=== PATIENT | female | born 1965 | race African-American/Black ===

== ENCOUNTER 2017-02-27 16:30 | Outpatient (RCR) | payer OTHER, SELFPAY | END 2017-02-27 23:59 | LOC: PT 16:30 | PROVIDERS: Visit Provider Nurse Practitioner Family | DX: M25.551 Pain in right hip (principal); M25.552 Pain in left hip | CPT/HCPCS: 97010; 97014; 97110; G0283 ==

== ENCOUNTER 2017-02-27 16:30 | Outpatient (RCR) | payer OTHER, SELFPAY | END 2017-02-27 23:59 | LOC: PT 16:30 | PROVIDERS: Visit Provider Nurse Practitioner Family | DX: M62.9 Disorder of muscle, unspecified (principal) | CPT/HCPCS: 97010; 97014; 97016; 97110; 97140; 97162; 97164; G0283 ==

== ENCOUNTER → 2018-07-26 17:18 | Outpatient (CLI) | payer BC, SELFPAY ==
[2018-07-26 18:25] LABS: Alanine Aminotransferase 20 U/L (12-78); Albumin Level 3.6 gm/dL (3.4-5.0); Albumin/Globulin Ratio 1.4 (1.1-1.8); Alkaline Phosphatase 107 U/L (46-116); Anion Gap 13.6 mEq/L (5-15); Aspartate Amino Transferase 14 U/L (15-37); Bilirubin,Total 0.3 mg/dL (0.2-1.0); Blood Urea Nitrogen 15 mg/dL (7-18); Calcium 8.8 mg/dL (8.5-10.1); Carbon Dioxide 28 mmol/L (21.0-32.0); Chloride 108 mmol/L (98-107); Creatinine,Serum 0.59 mg/dL (0.55-1.02); Estimated Glomerular Filt Rate 107 ml/min (>60); GFR (African American) 130 ML/MIN (>60); Globulin 2.5 gm/dl (1.3-3.2); Glucose 88 mg/dL (74-106); Potassium 4.6 mmoL/L (3.5-5.1); Sodium 145 mmol/L (136-145); Total Protein,Serum 6.1 gm/dL (6.4-8.2)
[2018-07-26 18:38] LABS: Basophils % 0.9 % (0.1-2.0); Eosinophils # 0.2 K/mm3 (0.0-0.4); Eosinophils % 5.5 % (0.1-12.0); Hematocrit 37.1 % (37.0-47.0); Hemoglobin 12.3 g/dL (12.2-16.2); Lymphocytes # 0.8 K/mm3 (0.7-4.5); Lymphocytes % 22.8 % (10-50); Mean Corpuscular HGB Conc 33.3 g/dL (31.8-35.4); Mean Corpuscular Hemoglobin 27.2 pg (27.0-31.2); Mean Corpuscular Volume 81.9 fl (81-99); Mean Platelet Volume 7.3 fl (7.4-10.4); Monocytes # 0.3 K/mm3 (0.1-1.0); Monocytes % 8.3 % (1.7-9.3); Neutrophils # 2.3 K/mm3 (1.8-7.8); Neutrophils % 62.5 % (37.0-80.0); Platelet Count 328 K/mm3 (142-424); Red Blood Count 4.53 M/mm3 (4.20-5.40); Red Cell Distribution Width 14.5 % (11.5-17.5); White Blood Count 3.7 K/mm3 (4.8-10.8)
== END ==
PROVIDERS: Visit Provider Internal Medicine
DX: Z51.81 Encounter for therapeutic drug level monitoring (principal)
CPT/HCPCS: 36415; 80053; 85025

== ENCOUNTER → 2018-09-06 08:20 | Outpatient (CLI) | payer BC, SELFPAY ==
--- NOTE | 2018-09-06 08:35 | US_ITS ---
US transvaginal HISTORY: ITS.REASON: ABD BLOATING ORDERING PHYSICIAN: Iram Mckinney APRN PATIENT AGE: 53 years Comparison: None FINDINGS: UTERUS: The uterus measures 6 x 3 x 3 cm. There is an IUD in place years the endometrium. No obvious uterine mass. The right ovary is 2 x 1.8 cm has an unremarkable appearance. The left ovary is 2.5 x 1.3 cm with a central echogenic focus nonspecific. No cul-de-sac fluid evident. IMPRESSION: Intrauterine device present in expected location Nonspecific small hyperechoic focus of the left ovary otherwise negative pelvic ultrasound.
--- NOTE | 2018-09-06 08:35 | US_ITS ---
US abdomen complete HISTORY: Midline abdominal pain with nausea and weight loss ITS.REASON: ABD BLOATING ORDERING PHYSICIAN: Iram Mckinney APRN PATIENT AGE: 53 years COMPARISON: None FINDINGS: PANCREAS:Unremarkable. No obvious mass or abnormal fluid collection. No ductal dilatation LIVER:There are multiple hepatic cysts the largest measuring 4.3 cm in the mid aspect of the liver. There is appropriate direction of blood flow within a nondilated portal vein. Common bile duct is normal at 4 mm. RIGHT KIDNEY:Unremarkable. Normal size and echogenicity. No hydronephrosis LEFT KIDNEY:Unremarkable. No hydronephrosis. Normal size and echogenicity. GALLBLADDER:The gallbladder is somewhat contracted. No stones, wall thickening, pericholecystic fluid, or biliary dilatation is evident. AORTA:No evidence of aneurysmal dilatation. SPLEEN:Unremarkable. Normal size and echogenicity ASCITES:None demonstrated. IMPRESSION: Multiple hepatic cysts otherwise negative abdominal ultrasound
== END ==
PROVIDERS: PCP Family Medicine; Visit Provider Nurse Practitioner Family
DX: R14.0 Abdominal distension (gaseous) (principal)
CPT/HCPCS: 76700; 76830

== ENCOUNTER 2020-03-05 10:30 | Emergency (ER) | payer BC, SELFPAY ==
[2020-03-05 10:45] VITALS: BP 104/76; PULSE 86; RESP 19; TEMP 36.6; O2SAT 99; BMI 24.2
--- NOTE | 2020-03-05 10:54 | HMH.EDUTC ---
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 Take tylenol for pain or fever. Return if you begin to have difficulty breathing. Follow up with your regular doctor. GO TO THE ER FOR ANY WORSENING SYMPTOMS Prescriptions: Azithromycin [Z-Milan 250mg Tab*] 250 mg PO UD DOSE PK #6 tab Transmission Status: Received by [facility] Referrals: Honey Stewart MD [Primary Care Provider] - Forms: Work/School Release Time of Disposition: 11:13 Medical Decision Making - Medical Records Medical records reviewed: No: I reviewed the patient's medical records. - Yadiel Inquiry Pt receiving controlled substance: No Vital Signs: 03/05/20 10:45 03/05/20 11:11 Temperature 97.8 F 97.8 F Temperature Source Oral Pulse Rate 86 Pulse Rate [Right Brachial] 86 Respiratory Rate 19 19 Blood Pressure 104/76 L Blood Pressure [Right Arm] 104/76 L Blood Pressure Mean [Right Arm] 85 Blood Pressure Source [Right Arm] Automatic Cuff Blood Pressure Position [Right Arm] Sitting 02 Sat by Pulse Oximetry 99 Oxygen Delivery Method Room Air Orders (Tests/Meds): ORDERS Category Date Time Status Covid-19 Nasal PCR ([facility]) Routine Lab 03/05/20 10:50 Received [facility] [place] HPI - General Stated complaint: covid exposure Time Seen by Provider: 03/05/20 10:54 - History of Present Illness Provider Complaint: She states that she has been exposed to covid at her work. This happened around 4 days ago. She is having sinus congestion. 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 She denies any fever, chills, shortness of breath, body aches, etc. - Related Data Home Medications Medication Instructions Recorded Confirmed Folic Acid [Folic Acid 1mg tablet] 1 mg PO DAILY 11/15/17 10/14/18 Gabapentin [Gabapentin 300mg Cap] 300 mg PO TID 11/15/17 10/14/18 Ibuprofen [Motrin 800mg Tab 800 mg PO BID 11/15/17 10/14/18 (generic)] Sulfamethoxazole/Trimethoprim 400 mg PO TIDWM 11/15/17 10/14/18 [Bactrim 400-80 mg (SS) Tablet] metHOTREXate sodium [metHOTREXate 20 mg PO WEEKLY 11/15/17 10/14/18 2.5mg Tablet] levonorgestrel 20 mcg/24 hours (6 INTRAUTERI each 10/14/18 10/14/18 yrs) 52 mg intrauterine device Previous Rx's Medication Instructions Recorded Azithromycin [Z-Milan 250mg Tab*] 250 mg PO UD DOSE PK #6 tab 03/05/20 Allergies Allergy/AdvReac Type Severity Reaction Status Date / Time No Known Allergies Allergy Verified 10/14/18 15:19 [facility] History - Hepatitis A Screen Attestation statement:: This patient has been screened for Hepatitis A risk factors. I have reviewed the patient's past medical history: Yes Medical History: Denies:: Cancer, Diabetes Mellitus Type 1, Diabetes Mellitus Type 2, Lung Disease, MRSA, Seizures Laterality Cases: Bilateral: Total Hip Replacement Other Surgeries: Yes: Sinus Surgery Amputation: No Fractures: No - Social History Smoking Status: Never smoker Alcohol Intake: never Substance Use Type: denies use Occupational Status: employed Family Hx:: No significant family history ROS Obtained: Yes All systems reviewed & no additional complaints - Constitutional Constitutional: Reports system reviewed and no additional complaints, excep
[2020-03-05 11:11] VITALS: BP 104/76; PULSE 86; RESP 19; TEMP 36.6; O2SAT 99
--- NOTE | 2020-03-05 15:40 | PC.NURSE ---
PT NOTIFIED OF POSITIVE COVID RESULT
== END 2020-03-05 11:19 | disposition home health service (06) ==
PROVIDERS: Emergency Provider Nurse Practitioner Family; PCP Family Medicine
DX: U07.1 COVID-19 (principal); J01.90 Acute sinusitis, unspecified; M31.30 Wegener's granulomatosis without renal involvement; Z96.641 Presence of right artificial hip joint; Z96.642 Presence of left artificial hip joint; Z79.899 Other long term (current) drug therapy
CPT/HCPCS: 99202; G0463; U0003

== ENCOUNTER 2020-10-15 17:22 | Emergency (ER) | payer BC, SELFPAY ==
[2020-10-15 17:35] VITALS: BP 130/72; PULSE 82; RESP 18; TEMP 36.8; O2SAT 98; BMI 22.3
--- NOTE | 2020-10-15 18:15 | HMH.EDUTC ---
[facility] [place] Disposition Clinical Impression: Sinusitis Qualifiers: Sinusitis location: unspecified location Chronicity: unspecified Qualified Code(s): J32.9 - Chronic sinusitis, unspecified Disposition: Home, Self-Care Condition on Discharge: Good Instructions: Sinusitis, DI for Sinusitis, Methylprednisolone, Azithromycin Additional Instructions: *Monitor Temp, Over the counter Motrin or Tylenol as directed/as needed Tylenol every 4 hours and Motrin every 6 hours (as long as your family doctor has told you that you can take it) for fever or pain. and straight to ER if unable to lower temp less than 101.0 after medication given *Warm salt water gargles may help to soothe the throat *Throat Lozenges *Warm fluids like tea with honey may help to soothe the throat *Sleep elevated *Humidifier/Vaporizer Take medication as prescribed Return if needed Follow up IMMEDIATELY for new or worsening symptoms or no Noticeable improvement over the next 48-72 hours. 911 for difficulty breathing or swallowing Prescriptions: methylPREDNISolone [Medrol 4mg tab] 4 mg PO DIRECTED #21 tab Transmission Status: Pending to [facility] Azithromycin [Z-Milan 250mg Tab] 250 mg PO DIRECTED #6 tab Transmission Status: Pending to [facility] Referrals: Honey Stewart MD [Primary Care Provider] - As needed Time of Disposition: 18:17 Medical Decision Making - Yadiel Inquiry Pt receiving controlled substance: No Yadiel was queried for this patient: No Vital Signs: 10/15/20 17:35 10/15/20 18:16 Temperature 98.2 F 98.2 F Temperature Source Oral Pulse Rate 82 Pulse Rate [Right Brachial] 82 Respiratory Rate 18 18 Blood Pressure 130/72 Blood Pressure [Right Arm] 130/72 Blood Pressure Mean [Right Arm] 91 Blood Pressure Source [Right Arm] Automatic Cuff Blood Pressure Position [Right Arm] Sitting 02 Sat by Pulse Oximetry 98 Oxygen Delivery Method Room Air Medical Decision Narrative: Patient state that she has taken a zpack and medrol in the past without complications or reactions [facility] [place] HPI - General Stated complaint: sinus infection Time Seen by Provider: 10/15/20 18:15 Mode of Arrival: Ambulatory Source of Information: Patient Limitations: No Limitations Description of Symptoms (Recalled from Triage Doc. by RN): PATIENT C/O POSSIBLE SINUS INFECTION HEENT Symptoms (Recalled from RN notes): Yes Resp Symptoms (Recalled from RN notes): No Skin Symptoms (Recalled from RN notes): No MS Symptoms (Recalled from RN notes): No Functional Status (Recalled from RN notes): WNL - History of Present Illness Provider Complaint: Patient states that she has been having sinus congestion and pressure for over a week States that now drainage went from clear to yellowish green State that she feels like it did when she had a sinus infection before - Related Data Home Medications Medication Instructions Recorded Confirmed Folic Acid [Folic Acid 1mg tablet] 1 mg PO DAILY 11/15/17 10/14/18 Gabapentin [Gabapentin 300mg Cap] 300 mg PO TID 11/15/17 10/14/18 Ibuprofen [Motrin 800mg Tab 800 mg PO BID 11/15/17 10/14/18 (generic)] Sulfamethoxazole/Trimethoprim 400 mg PO TIDWM 11/15/17 10/14/18 [Bactrim 400-80 mg (SS) Tablet] metHOTREXate sodium [metHOTREXate 20 mg PO WEEKLY 11/15/17 10/14/18 2.5mg Tablet] levonorgestrel 20 mcg/24 hours (6 INTRAUTERI each 10/14/18 10/14/18 yrs) 52 mg intrauterine device Previous Rx's Medication Instructions Recorded Azithromycin [Z-Milan 250mg Tab*] 250 mg PO UD DOSE PK #6 tab 03/05/20 Azithromycin [Z-Milan 250mg Tab] 250 mg PO DIRECTED #6 tab 10/15/20 methylPREDNISolone [Medrol 4mg 4 mg PO DIRECTED #21 tab 10/15/20 tab] Allergies Allergy/AdvReac Type Severity Reaction Status Date / Time No Known Allergies Allergy Verified 10/14/18 15:19 - Worker's Comp Is this a Worker's Comp case?: No [facility] History - Hepatitis A Screen Drug use his
[2020-10-15 18:16] VITALS: BP 130/72; PULSE 82; RESP 18; TEMP 36.8; O2SAT 98
== END 2020-10-15 18:19 | disposition home or self-care (01) ==
PROVIDERS: Emergency Provider Nurse Practitioner; PCP Family Medicine
DX: J32.9 Chronic sinusitis, unspecified (principal)
CPT/HCPCS: 99202; G0463

== ENCOUNTER → 2021-03-01 12:06 | Outpatient (CLI) | payer BC, SELFPAY | PROVIDERS: Visit Provider Nurse Practitioner | DX: U07.1 COVID-19 (principal) | CPT/HCPCS: C9803; U0003; U0005 ==

== ENCOUNTER 2021-03-01 12:12 | Emergency (ER) | payer BC, SELFPAY ==
[2021-03-01 13:45] VITALS: BP 102/73; PULSE 106; RESP 20; TEMP 37.2; O2SAT 97; BMI 22.1
[2021-03-01 14:02] LABS: UTC Strep Screen (Rapid) Positive (Negative)
--- NOTE | 2021-03-01 14:13 | HMH.EDUTC ---
[facility] [place] Disposition Clinical Impression: Strep throat Disposition: Home, Self-Care Condition on Discharge: Good Instructions: Strep Throat, DI for Strep Throat Additional Instructions: *Monitor Temp, Over the counter Motrin or Tylenol as directed/as needed Tylenol every 4 hours and Motrin every 6 hours (as long as your family doctor has told you that you can take it) for fever or pain. and straight to ER if unable to lower temp less than 101.0 after medication given *Warm salt water gargles may help to soothe the throat *Throat Lozenges *Warm fluids like tea with honey may help to soothe the throat *Sleep elevated *Humidifier/Vaporizer *If you did not take Penicillin shot or was unable to, start taking antibiotic immediately and make sure that you take it for the FULL length of time although you should start to feel better in 24-48 hours *change toothbrush and toothpaste 24-48 hours after starting to take antibiotics so you do not reinfect yourself Monitor Temp. Tylenol and/or Ibuprofen as needed. ER if fever is no less than 101 despite alternating Tylenol and Ibuprofen * Encourage fluids, water, Gatorade, powerade, pedialyte if infant/toddler/or child *Cold fluids, popsicles and ice cream may feel good on his throat Follow up IMMEDIATELY for new or worsening symptoms or no Noticeable improvement over the next 48-72 hours. 911 for difficulty breathing or swallowing You were tested for today for COVID19 your test result should be back in the next 24-48 hours, you may check your results on the [facility] My Health portal if you have trouble logging on you may call You was given a handout with instructions for Self Quarantine and Self isolation for while you wait on test results and what to do if they are positive If you are positive the Health Dept will be contacting you also Make sure to take your Vitamins Vit. C Vit D and Zinc if you can take them Prescriptions: Amoxicillin [Amoxicillin 500mg Cap] 500 mg PO TID #30 cap Transmission Status: Pending to [facility] methylPREDNISolone [Medrol 4mg tab] 4 mg PO DIRECTED #21 tab Transmission Status: Pending to [facility] Referrals: Honey Stewart MD [Primary Care Provider] - As needed Forms: Work/School Release Time of Disposition: 14:24 Medical Decision Making - Yadiel Inquiry Pt receiving controlled substance: No Yadiel was queried for this patient: No Vital Signs: 03/01/21 13:45 03/01/21 14:23 Temperature 98.9 F 98.9 F Temperature Source Oral Pulse Rate 106 H Pulse Rate [Right Brachial] 106 H Respiratory Rate 20 20 Blood Pressure 102/73 L Blood Pressure [Right Arm] 102/73 L Blood Pressure Mean [Right Arm] 82 Blood Pressure Source [Right Arm] Automatic Cuff Blood Pressure Position [Right Arm] Sitting 02 Sat by Pulse Oximetry 97 Oxygen Delivery Method Room Air - Lab Data Lab results reviewed: Yes: I reviewed the patient's lab results. Lab Results 03/01/21 13:54: Strep Scn Rapid Clinic Positive A [facility] [place] HPI - General Stated complaint: possible strep, pos OTC covid 02/28 Time Seen by Provider: 03/01/21 14:14 Mode of Arrival: Ambulatory Source of Information: Patient Limitations: No Limitations Description of Symptoms (Recalled from Triage Doc. by RN): PATIENT C/O SORE THROAT. HAD COVID TEST TODAY HEENT Symptoms (Recalled from RN notes): Yes Resp Symptoms (Recalled from RN notes): No Skin Symptoms (Recalled from RN notes): No MS Symptoms (Recalled from RN notes): No Functional Status (Recalled from RN notes): WNL - History of Present Illness Provider Complaint: Patient states that she has been having sore throat, headache, body aches, chills and fever State that she took OTC COVID test yesterday and it was positive State that today she came in got a PCR test here to see if it was positive but was worried that she may have strep throat so she came in to get checked for that too - Related Data Home Medication
[2021-03-01 14:23] VITALS: BP 102/73; PULSE 106; RESP 20; TEMP 37.2; O2SAT 97
== END 2021-03-01 14:26 | disposition home or self-care (01) ==
PROVIDERS: Emergency Provider Nurse Practitioner; PCP Family Medicine
DX: J02.0 Streptococcal pharyngitis (principal)
CPT/HCPCS: 87880; 99202; G0463

== ENCOUNTER → 2022-01-05 08:08 | Outpatient (CLI) | payer BC, SELFPAY ==
--- NOTE | 2022-01-05 08:08 | MM_ITS ---
PROCEDURE INFORMATION: Exam: MG Bilateral Screening 3D Mammography Exam date and time: 01/05/2022 8:00 AM Age: 56 years old Clinical indication: Screening. No family history of breast cancer. TECHNIQUE: Imaging protocol: Bilateral Screening tomosynthesis and 2D mammography including computer-aided detection (CAD) when performed. COMPARISON: Note comment regarding comparison 1. [facility] DIGITAL SCREEN BILATERAL 11/17/2020 2:32 PM - corrupted images 2. [facility] DIGITAL SCREEN BILATERAL 07/31/2018 1:37 PM 3. If prior mammograms are provided, I am happy to add an addendum. FINDINGS: MAMMOGRAPHY: Breast composition: The breasts are almost entirely fatty. Mass: None. Architectural distortion: None. Calcifications: No suspicious calcifications. Asymmetric density: None. Skin thickening: None. Axillary adenopathy: None. IMPRESSION: No mammographic evidence of malignancy. Annual screening is recommended unless otherwise clinically indicated. ASSESSMENT: BI-RADS Category 1: Negative
== END ==
PROVIDERS: PCP Family Medicine; Visit Provider Nurse Practitioner Obstetrics & Gynecology
DX: Z12.31 Encounter for screening mammogram for malignant neoplasm of breast (principal)
CPT/HCPCS: 77063; 77067

== ENCOUNTER 2022-02-13 17:43 | Emergency (ER) | payer BC, SELFPAY ==
[2022-02-13 20:05] VITALS: BP 120/87; PULSE 98; RESP 18; TEMP 36.9; O2SAT 98; BMI 21.7
--- NOTE | 2022-02-13 20:24 | EXP.UTC ---
Discharge Plan Disposition Patient Disposition: Home, Self-Care Condition: Good Prescriptions Prescriptions: No Action methotrexate sodium 2.5 mg tablet 2.5 mg PO ibuprofen 800 mg tablet 800 mg PO duloxetine 60 mg capsule,delayed release(DR/EC) 60 mg PO folic acid 1 mg tablet 1 mg PO Mirena 20 mcg/24 hours (7 yrs) 52 mg intrauterine device INTRAUTERI sulfamethoxazole-trimethoprim 1 EACH tablet 1 tab PO BID pantoprazole 40 MG tablet,delayed release (DR/EC) 40 mg PO HS gabapentin 300 MG capsule 300 mg PO QID Referrals Follow up/Referrals: Honey Stewart MD [Primary Care Provider] - See instructions Activity Restrictions/Add. Instructions Additional Instructions/Restrictions: *Monitor Temp, Over the counter Motrin or Tylenol as directed/as needed Tylenol every 4 hours and Motrin every 6 hours (as long as your family doctor has told you that you can take it) for fever or pain. and straight to ER if unable to lower temp less than 101.0 after medication given *Warm salt water gargles may help to soothe the throat *Throat Lozenges? *Warm fluids like tea with honey may help to soothe the throat? *Sleep elevated *Humidifier/Vaporizer Follow up IMMEDIATELY for new or worsening symptoms or no Noticeable improvement over the next 48-72 hours. 911 for difficulty breathing or swallowing You were tested for today for Upper Respiratory Panel with COVID19 your test result should be back in the next 24-48 hours, you may check your Results on the [facility] Health Portal Clinical Impressions Clinical Impression: Viral syndrome Stand Alone Forms Stand Alone Forms: Work/School Release Instructions Patient Instructions: COVID-19 Viral Test, DI for COVID-19 (Suspected or Confirmed ), DI for Viral Syndrome Discharge ED Provider: Shasha Villarreal [facility] [place] General Stated complaint: covid pos 02/12, h/a, fever, body aches, cough Mode of Arrival: Ambulatory Source of Information: Patient Limitations: No Limitations Time Seen by Provider: 02/13/22 20:24 Description of Symptoms (Recalled from Triage Doc. by RN): PATIENT C/O BODY ACHES, HEADACHE AND COUGH SINCE YESTERDAY. REPORTS A POSITIVE AT HOME COVID TEST HEENT Symptoms (Recalled from RN notes): No Resp Symptoms (Recalled from RN notes): No Skin Symptoms (Recalled from RN notes): No MS Symptoms (Recalled from RN notes): No Functional Status (Recalled from RN notes): WNL History of Present Illness Provider Complaint: Patient states that she started feeling bad yesterday States that she has been having fever, chills, body aches, and headache States that she took an at home COVID test and it was positive but work wanted her to come in and get tested here Related Data Home Medications Medication Instructions Recorded Confirmed gabapentin 300 mg capsule 300 mg PO QID Pain 03/01/21 10/14/21 pantoprazole 40 mg tablet,delayed 40 mg PO HS GERD 03/01/21 10/14/21 release sulfamethoxazole 400 1 tab PO BID . 03/01/21 10/14/21 mg-trimethoprim 80 mg tablet duloxetine 60 mg capsule,delayed 60 mg PO 08/05/21 10/14/21 release folic acid 1 mg tablet 1 mg PO 08/05/21 10/14/21 ibuprofen 800 mg tablet 800 mg PO 08/05/21 10/14/21 levonorgestrel 20 mcg/24 hours (8 intrauterine 08/05/21 10/14/21 yrs) 52 mg intrauterine device (Mirena) methotrexate sodium 2.5 mg tablet 2.5 mg PO 08/05/21 10/14/21 Allergies Allergy/AdvReac Type Severity Reaction Status Date / Time No Known Allergies Allergy Verified 10/14/21 10:44 Worker's Comp Is this a Worker's Comp case?: No [facility] Disclaimer: The information contained in this section may have been updated after the patient was seen, as this information can be updated by other users. Social History Smoking Status: Never smoker alcohol intake: never substance use type: denies use current occupational status: other Travel in the last 8 weeks:
[2022-02-13 20:35] VITALS: BP 120/87; PULSE 98; RESP 18; TEMP 36.9; O2SAT 98
== END 2022-02-13 20:36 | disposition home or self-care (01) ==
PROVIDERS: Emergency Provider Nurse Practitioner; PCP Family Medicine
DX: U07.1 COVID-19 (principal); R50.9 Fever, unspecified; R05.9 Cough, unspecified
CPT/HCPCS: 99212; C9803; G0463; U0003; U0005

== ENCOUNTER 2022-02-21 13:29 | Emergency (ER) | payer BC, SELFPAY ==
[2022-02-21 14:54] VITALS: BP 118/70; PULSE 76; RESP 16; TEMP 36.8; O2SAT 98; BMI 24.8
--- NOTE | 2022-02-21 14:55 | EXP.UTC ---
Discharge Plan Disposition Patient Disposition: Home, Self-Care Condition: Good Prescriptions Prescriptions: New benzonatate [benzonatate] 100 mg capsule 100 mg PO TIDP PRN (Reason: Cough) Qty: 30 0RF methylprednisolone 4 mg Tablets,Dose Pack 4 mg PO DIRECTED Qty: 21 0RF amoxicillin-pot clavulanate 875-125 mg Tablet 1 tab PO Q12H Qty: 20 0RF No Action methotrexate sodium 2.5 mg tablet 2.5 mg PO ibuprofen 800 mg tablet 800 mg PO duloxetine 60 mg capsule,delayed release(DR/EC) 60 mg PO folic acid 1 mg tablet 1 mg PO Mirena 20 mcg/24 hours (7 yrs) 52 mg intrauterine device INTRAUTERI sulfamethoxazole-trimethoprim 1 EACH tablet 1 tab PO BID pantoprazole 40 MG tablet,delayed release (DR/EC) 40 mg PO HS gabapentin 300 MG capsule 300 mg PO QID azithromycin [Zithromax Z-Milan] 250 mg tablet See Rx Instructions .ROUTE .COMPLEX 5 Days Qty: 6 0RF Rx Instructions: For 250 mg dose pack: take 500 mg today (day 1), then 250 mg for 4 days (days 2-5) Referrals Follow up/Referrals: Honey Stewart MD [Primary Care Provider] - See instructions Activity Restrictions/Add. Instructions Additional Instructions/Restrictions: Drink plenty of fluids. Take tylenol or ibuprofen for pain or fever. Take the medications as directed. Follow up with your regular doctor. GO TO THE ER FOR ANY WORSENING SYMPTOMS Clinical Impressions Clinical Impression: Acute bronchitis, Pharyngitis Instructions Patient Instructions: Acute Bronchitis Discharge ED Provider: Jose Alberto Tirado [facility] General Stated complaint: Headache, sore throat Time Seen by Provider: 02/21/22 14:55 History of Present Illness Provider Complaint: She states that for the past 1 week she has had a cough, congestion, and sore throat. She had covid-19 about 10 days ago. She states that it seemed like she got better from the covid-19, then her current symptoms started. She denies any shortness of breath. Related Data Home Medications Medication Instructions Recorded Confirmed gabapentin 300 mg capsule 300 mg PO QID Pain 03/01/21 10/14/21 pantoprazole 40 mg tablet,delayed 40 mg PO HS GERD 03/01/21 10/14/21 release sulfamethoxazole 400 1 tab PO BID . 03/01/21 10/14/21 mg-trimethoprim 80 mg tablet duloxetine 60 mg capsule,delayed 60 mg PO 08/05/21 10/14/21 release folic acid 1 mg tablet 1 mg PO 08/05/21 10/14/21 ibuprofen 800 mg tablet 800 mg PO 08/05/21 10/14/21 levonorgestrel 20 mcg/24 hours (8 intrauterine 08/05/21 10/14/21 yrs) 52 mg intrauterine device (Mirena) methotrexate sodium 2.5 mg tablet 2.5 mg PO 08/05/21 10/14/21 Previous Rx's Medication Instructions Recorded azithromycin 250 mg tablet See Rx Instructions PO .COMPLEX 5 02/14/22 (Zithromax Z-Milan) days #6 tabs amoxicillin 875 mg-potassium 1 tab PO Q12H #20 tabs 02/21/22 clavulanate 125 mg tablet benzonatate 100 mg capsule 100 mg PO TIDP PRN Cough #30 caps 02/21/22 methylprednisolone 4 mg tablets in 4 mg PO DIRECTED #21 tabs 02/21/22 a dose pack Allergies Allergy/AdvReac Type Severity Reaction Status Date / Time No Known Allergies Allergy Verified 02/21/22 14:56 [facility] Disclaimer: The information contained in this section may have been updated after the patient was seen, as this information can be updated by other users. Social History Smoking Status: Never smoker alcohol intake: never substance use type: denies use current occupational status: other Travel in the last 8 weeks: None ROS Obtained: Yes All systems reviewed & no additional complaints except as documented Constitutional Constitutional: Reports chills and Reports fever(s) Eyes Eyes: Denies eye discharge ENT Ears, Nose, Mouth, and Throat: Reports as per HPI Cardiovascular Cardiovascular: Denies chest pain Respiratory Respiratory: Denie
--- NOTE | 2022-02-21 15:10 | XR_ITS ---
FINAL REPORT CLINICAL HISTORY: cough, congestion COMPARISON: 07/20/2016 FINDINGS: Two views of the chest were obtained. The heart size and pulmonary vascularity are within normal limits. The mediastinum is normal. No acute pulmonary abnormality is identified. There is no pneumothorax. The bony thorax is intact. IMPRESSION: No active cardiopulmonary disease. Reviewed, Interpreted and Dictated by Reese Rosado III, MD Transcribed by Raysa Marrufo Authenticated and [facility]
[2022-02-21 15:17] LABS: UTC Influenza A Antigen Negative (Negative); UTC Influenza B Antigen Negative (Negative); UTC Strep Screen (Rapid) Negative (Negative)
[2022-02-21 15:48] VITALS: BP 118/70; PULSE 76; RESP 16; TEMP 36.8
== END 2022-02-21 15:59 | disposition home or self-care (01) ==
PROVIDERS: Emergency Provider Nurse Practitioner Family; PCP Family Medicine
DX: J20.9 Acute bronchitis, unspecified (principal); J02.9 Acute pharyngitis, unspecified
CPT/HCPCS: 71046; 87804; 87880; 99212; G0463

== ENCOUNTER → 2022-05-31 15:44 | Outpatient (CLI) | payer BC, SELFPAY ==
--- NOTE | 2022-05-31 15:50 | XR_ITS ---
FINAL REPORT CLINICAL HISTORY: ACUTE RIGHT ANKLE PAIN FINDINGS: RIGHT ANKLE Three views of the right ankle were obtained. There is no acute fracture or dislocation. The joint spaces and mortise are intact. There is mild soft tissue swelling over the lateral malleolus. IMPRESSION: Mild soft tissue swelling over the lateral malleolus with no acute bony abnormality. Reviewed, Interpreted and Dictated by Jose Phillips MD Transcribed by Katheryn Li Authenticated and . [facility]
== END ==
LOC: RAD 15:45
PROVIDERS: PCP Nurse Practitioner Family; Visit Provider Nurse Practitioner Family
DX: M25.571 Pain in right ankle and joints of right foot (principal)
CPT/HCPCS: 73610

== ENCOUNTER 2023-03-02 12:52 | Outpatient (CLI) | payer BC, SELFPAY ==
--- NOTE | 2023-03-02 | CA_ITS ---
APPROVED REPORT EXAM: Comprehensive 2D, Doppler, and color-flow Echocardiogram Cash Processor: Michelle Israel, RCS, RVS Ht: 5 ft 0 in Wt: 137lbs BSA: 1.59 BP: 114/72 mmHg Indications: SOA,Palpitations 2D Dimensions Aortic Root 2.75 cm LVEF (Hoyos's) 54.90 % Left Atrium 2.46 cm LV Volume 63.70 mL RVID Base (AP4) 2.46 cm (M/F) 2.5-4.1 LA Volume 22.20 mL LVOT 1.73 cm (M/F) 1.5-2.5 LA Volume Index 14.00 mL/m2 (M/F) 16-34 EF AP4 54.00 % EF AP2 56.4 % EF BP 54.9 % GL Strain -21.6 % M-Mode Dimensions RVDd 1.04 cm (0.9-2.6) LVDd 4.58 cm (3.5-5.7) Ao Diam 2.73 cm (2.0-3.7) LVDs 2.61 cm (3.5-5.7) IVSd 0.72 cm (0.6-1.1) PWd 0.88 cm (0.6-1.1) EF (Teich) 74.20% EPSs 0.28 cm FS 43.00% EDV (Teich) 96.30 mL ESV (Teich) 24.80 mL LV Diastology E Decel Time 203 (160-240 msec) E/A Ratio 1.07 MED E' 11.6 (>= 7 cm/sec) MED A' 8.50 cm/s E'/MED E' Ratio 5.16 (<= 14) LAT E' 11.1 (>= 10 cm/sec) LAT A' 13.10 cm/s E/LAT E' Ratio 5.39 (<= 14) Aortic Valve LVOT Max 116.0 (70-110 cm/s) TERE Index 1.34 cm2/m2 LVOT VTI 20.38 cm AoV Peak Kolby. 127.0 (50-130 cm/s) AO Mean GR. 3.20 (<5 mmHg) AO VTI 22.5 (18-25 cm) TERE (VTI) 2.13 (2.5-4.5 cm2) Mitral Valve MV E Max Kolby. 60.0 (40-130 cm/s) MV A Velocity 56.0 (40-130 cm/s) E/A Ratio 1.07 MV Decel. Time 203 (160-240 ms) Pulmonary Valve RI End VMAX 186.0 cm/s Tricuspid Valve TR P. Velocity 252.00 cm/s RAP Estimate 10.00 mmHg RVSP 35.40 mmHg Left Ventricle The left ventricle is normal size. The left ventricular systolic function is normal. The left ventricular ejection fraction is within the normal range. There is normal left ventricular wall thickness. There is normal LV segmental wall motion. The left ventricular diastolic function is normal. LVEF is 55%. Right Ventricle The right ventricle is normal size. The right ventricular systolic function is normal. Atria The left atrium size is normal. The right atrium size is normal. There is no Doppler evidence of interatrial shunt. Aortic Valve The aortic valve is normal in structure. There is no aortic valvular stenosis. No aortic regurgitation is present. Mitral Valve The mitral valve is normal in structure. No evidence of mitral valve stenosis. Mild mitral regurgitation. Tricuspid Valve The tricuspid valve leaflets are thin and pliable. Mild tricuspid regurgitation. RVSP is 25-30 mmHg. Pulmonic Valve The pulmonary valve is normal in structure. Trace pulmonic regurgitation. Great Vessels The aortic root is normal in size. The ascending aorta is normal in size. IVC is normal in size and collapses >50% with inspiration. Pericardium There is no pericardial effusion. Other Information Study Quality: Adequate Conclusion Normal biventricular systolic function. Mild MR, mild TR. RVSP 25-30 mmHg. Electronically signed by : Marge Harrison MD 03/04/2023 17:03:35
--- NOTE | 2023-03-02 12:55 | CT_ITS ---
FINAL REPORT CLINICAL HISTORY: SHORTNESS OF BREATH COMPARISON: None FINDINGS: Axial CT images of the chest were obtained with contrast. Coronal reformatted images were also obtained. This study was performed with techniques to keep radiation doses as low as reasonably achievable, (ALARA). Individualized dose reduction techniques using automated exposure control or adjustment of mA and/or KV according to the patient''''s size were employed. No evidence of pulmonary embolism. No thoracic aortic aneurysm or dissection noted. There is mediastinal and bilateral new. Lower right paratracheal node measures 15 mm. Right hilar node measures 21 mm. There is right subpectoral adenopathy measuring up to 14 mm. On lung window images, there are several small noncalcified bilateral pulmonary nodules. Left apical nodule measures 7 mm, seen on image 9. Limited images of the upper abdomen reveal numerous hepatic cysts. IMPRESSION: Thoracic and right subpectoral adenopathy and pulmonary nodules of uncertain etiology. Differential diagnosis includes inflammatory processes including mycobacterial/fungal disease is, sarcoidosis, or neoplastic involvement. Recommend follow-up chest CT in 2-3 months. Reviewed, Interpreted and Dictated by Reese Rosado III, MD Transcribed by Calista Quigley Authenticated and [facility]
[2023-03-02] MEDS: IOPAMIDOL-370 (76%);100ML BOTTLE 75 ML IV (13:49)
== END 2023-03-02 23:59 ==
PROVIDERS: PCP Nurse Practitioner Family; Visit Provider Nurse Practitioner
DX: R06.02 Shortness of breath (principal)
CPT/HCPCS: 71260; 93306; Q9967

== ENCOUNTER 2023-04-20 16:02 | Outpatient (CLI) | payer BC, SELFPAY ==
[2023-04-20 16:54] LABS: Alanine Aminotransferase 21 U/L (12-78); Albumin Level 3.7 g/dl (3.5-5.0); Albumin/Globulin Ratio 1.9 (1.1-1.8); Alkaline Phosphatase 85 U/L (38-126); Anion Gap 9.2 mEq/L (5-15); Aspartate Amino Transferase 19 U/L (14-36); Bilirubin,Total 0.4 mg/dl (0.2-1.3); Blood Urea Nitrogen 12 mg/dl (7-17); Calcium 8.6 mg/dl (8.4-10.2); Carbon Dioxide 27 mmol/L (22.0-30.0); Chloride 108 mmol/L (98-107); Estimated Glomerular Filt Rate 74 ml/min (>60); GFR (African American) 90 ML/MIN (>60); Globulin 1.9 g/dL (1.3-3.2); Glucose 135 mg/dl (74-100); Magnesium 2.2 mg/dl (1.6-2.3); Potassium 4.2 mmoL/L (3.5-5.1); Sodium 140 mmol/L (136-145); Total Protein,Serum 5.6 g/dl (6.3-8.2)
== END 2023-04-20 23:59 ==
LOC: LAB 16:02
PROVIDERS: PCP Family Medicine; Visit Provider Internal Medicine
DX: R25.2 Cramp and spasm (principal); M31.30 Wegener's granulomatosis without renal involvement; D50.0 Iron deficiency anemia secondary to blood loss (chronic); Z79.899 Other long term (current) drug therapy
CPT/HCPCS: 36415; 80053; 83735

== ENCOUNTER 2023-05-15 13:00 | Outpatient (RCR) | payer BC, SELFPAY | END 2023-05-15 13:05 | disposition home or self-care (01) | LOC: PT 13:00 | DX: M79.7 Fibromyalgia (principal); M79.604 Pain in right leg; M79.605 Pain in left leg | CPT/HCPCS: 97010; 97014; 97110; 97163; G0283 ==

== ENCOUNTER 2023-06-06 15:33 | Outpatient (CLI) | payer BC, SELFPAY ==
--- NOTE | 2023-06-06 15:39 | MR_ITS ---
FINAL REPORT CLINICAL HISTORY: RADICULAR PAIN OF LEFT LOWER EXTREMITY 14 ml prohance given FINDINGS: Multiplanar MR imaging of the lumbar spine was performed without and with contrast. On the sagittal T2-weighted images, abnormal decreased signal is seen throughout. There is mild retrolisthesis of L2 on L3 and L3 on L4. There is no evidence of fracture. The conus is seen at approximately the L1 level and has an unremarkable appearance. L1-2: No significant canal stenosis or neuroforaminal narrowing is seen. L2-3: No significant canal stenosis or neuroforaminal narrowing is seen. L3-4: No significant canal stenosis or neuroforaminal narrowing is seen. L4-5: Annular disc bulge with mild right and moderate left neuroforaminal narrowing. There is a small left foraminal disc protrusion. L5-S1: Annular disc bulge without significant canal stenosis or neuroforaminal narrowing is seen. No abnormal contrast enhancement is identified. IMPRESSION: Small left foraminal disc protrusion L4-5 with moderate left neuroforaminal narrowing. No abnormal contrast-enhancement. Reviewed, Interpreted and Dictated by Reese Rosado III, MD Transcribed by Scarlet Payne Authenticated and [facility]
[2023-06-06] MEDS: SODIUM CHLORIDE 0.9% 10ML SYR (RAD ONLY) 10 ML IV (16:25)
[2023-06-06] MEDS: GADOTERIDOL INJ 17ML SYRINGE 14 ML IV (16:25)
== END 2023-06-06 23:59 | disposition home or self-care (01) ==
LOC: RAD 15:33
PROVIDERS: PCP Family Medicine; Visit Provider Internal Medicine Rheumatology
DX: M54.10 Radiculopathy, site unspecified (principal)
CPT/HCPCS: 72158; 76376; A9576

== ENCOUNTER 2023-07-20 06:32 | Day surgery (SDC) | payer BC, SELFPAY ==
--- NOTE | 2023-07-17 14:38 | SUR.PREOP ---
0235: No answer. VM left with callback number.
[2023-07-18 11:50] VITALS: BMI 29.0
[2023-07-20] VITALS (9 sets, daily range): BP systolic 98–128; BP diastolic 66–81; PULSE 76–100; RESP 16–18; TEMP 36.3–36.7; O2SAT 90–100; BMI 24.7
--- NOTE | 2023-07-20 07:04 | P.PCN_ITS ---
Procedure: Date: 07/20/23 Patient Date of :: 1965 Procedure Performed:: Esophagogastroduodenoscopy with biopsies Total colonoscopy to terminal ileum with biopsy polypectomy Indications:: Patient is a 58-year-old female who presents for EGD and colonoscopy. She had undergone previous colonoscopy with Dr. Juarez on 06/14/2018. She did have a tubular adenoma. 5-year follow-up colonoscopy was recommended. She does have a family history of colon cancer in her mother diagnosed at approximately age 65. Apparently upper endoscopy was requested as she has been having some stomach issues . Apparently this is characterized by postprandial epigastric pain and bloating. Patient still has gallbladder. . Performing Provider:: Reese Ryan MD Referring Provider:: Candi Stewart MD Sedation:: MAC sedation Procedure:: Patient history was obtained and appropriate physical examination was performed. Patient's medications and allergies were reviewed. Informed consent was obtained after explaining the benefits, alternatives, and risks of the procedure including, but not limited to, bleeding, perforation, missed lesions, and adverse reaction to anesthesia medications. Patient was transported to endoscopy procedure room. Patient was connected to monitoring devices. Throughout the procedure the patient's blood pressure, pulse, and oxygen saturations were monitored continuously. Patient rowena ntification and planned procedure were verified by the staff. Patient was positioned in lateral decubitus position. Attention was first turned to upper endoscopy. Olympus endoscope was inserted via the oropharynx. There is some minor cricopharyngeal spasm. Esophagus was cannulated. Overall esophagus appeared relatively unremarkable. Gastroesophageal junction was encountered at approximately 33 cm from the incisors. Stomach was cannulated and insufflated. Retroflexion was performed which revealed no evidence of any definite appreciable hiatal hernia. There is some linear gastropathy in the antrum. Pylorus was traversed. Duodenal bulb and duodenal sweep appeared unremarkable. Biopsy was obtained of the distal duodenum and within the duodenal bulb and sent as duodenal biopsy. Gastric antral biopsy was obtained. Stomach was desufflated and the endoscope was withdrawn. Attention was then turned to colonoscopy. Digital anorectal exam was performed. Variable stiffness Olympus colonoscope was inserted and advanced under direct visualization to the cecum. Adequacy of the colonic preparation was noted. The colonoscope was advanced a short distance into the terminal ileum. The colonoscope was then slowly withdrawn while carefully examining the color, texture, anatomy, and integrity of the mucosoa circumferentially. Within the rectum retroflexion was performed. Colonoscope was then withdrawn. . Impression: Gastroesophageal junction was encountered at approximately 33 cm. There was some diffuse linear gastropathy/gastritis. Colonoscopy revealed somewhat of a suboptimal preparation with particulate liquid stool throughout the colon. High-volume trans colonoscopic irrigation and suctioning was performed. This allowed for decent visualization. Colonoscope was slowly withdrawn through the colon. There was a possible early diminutive polyp in the sigmoid colon removed with cold biopsy forceps. . Findings:: Cricopharyngeal spasm Gastroesophageal junction at 33 cm Linear gastropathy Suboptimal colon preparation Possible polyp at sigmoid colon . Recommendations:: Follow-up on biopsies from upper endoscopy. May need gallbladder workup. Recommend repeat colonoscopy likely in 2 years due to suboptimal preparation, family history of colon cancer at a young age and personal history of polyp. Complications:: None immediately apparent Estimated blood obtained (mL): 2 Colonoscopy Component Colonoscopy Component Was a colonoscopy performed during today's procedure?: Yes Recommended follow up colonoscopy of at least 10 years?: No If no, follow up colonoscopy recommended in ___ years?: See above Reason for not recommending >/= 10 yr follow-up interval?: See above
[2023-07-20] MEDS: LACTATED RINGERS 1000ML 1,000 ML 25 ML IV (07:05)
--- NOTE | 2023-07-20 07:14 | EXP.ANES.CKL ---
[facility] Disclaimer: The information contained in this section may have been updated after the patient was seen, as this information can be updated by other users. Medical History History of hip fracture History of anemia Surgical History History of tonsillectomy Hx of sinus surgery Family History Mother Family history of cancer Father Family history of diabetes mellitus type II Social History Smoking Status: Never smoker alcohol intake: never substance use type: denies use current occupational status: employed Travel in the last 8 weeks: None caffeine: Yes [facility] Anesthesia Checklist Patient Identification Patient Identification: Arm Band and Verbal (Name & ) Structural Data Admitted From: Home Planned Operative Procedure/s: EGD/Colonoscopy Consent for Planned Operative Procedure(s) Verified: Yes NPO Status Verified Time NPO: 00:00 Additional verifications Anesthesia Reactions: No Airway Assessment Mallampati Score:: Class II C-Spine Mobility Assessed: Yes TMJ Mobility Assessed: Yes Dentition: Good Dentition Neurological Assessment Level of Consciousness: Awake Hx Seizures: No Numbness or tingling in extremities: No Anesthesia Plan Anesthesia Risk discussed: Yes Anesthesia Plan: Verified ASA Class: II Anesthesia Type: MAC
--- NOTE | 2023-07-20 08:32 | EXP.ANES.I ---
[facility] Anesthesia Record Part I Anesthesia Record I Intake, IV Amount: 300 Hydration: Adequate Estimated blood loss (mL): 1 Urine output (mL): 0 Blood Products used (#): none Blood Pressure: 101/66 SaO2: 90 Pulse Rate: 100 Airway Patency: Patent Respiratory Rate: 16 Temperature: 97.4 F Patient is:: Awake (Talking) and Stable Stable to PACU at:: 08:30
== END 2023-07-20 09:00 | disposition home or self-care (01) ==
PROVIDERS: PCP Family Medicine; Visit Provider Surgery
PROC: 0DJ08ZZ Inspection of Upper Intestinal Tract, Via Natural or Artificial Opening Endoscopic (ICD-10-PCS; CPT 43235; principal; 2023-07-20 07:30)
DX: Z12.11 Encounter for screening for malignant neoplasm of colon (principal); Z86.010 Personal history of colon polyps; Z80.0 Family history of malignant neoplasm of digestive organs; D12.5 Benign neoplasm of sigmoid colon; R10.13 Epigastric pain
CPT/HCPCS: 44376; 45380; J7120

== ENCOUNTER 2023-08-28 09:23 | Outpatient (POV) | payer BC, SELFPAY | END 2023-08-28 23:59 | disposition home or self-care (01) | LOC: SC 09:23 | PROVIDERS: Visit Provider Specialist/Technologist | DX: Z00.00 Encounter for general adult medical examination without abnormal findings (principal) ==

== ENCOUNTER 2024-03-01 13:40 | Emergency (ER) | payer BC, SELFPAY ==
[2024-03-01 15:05] VITALS: BP 140/90; PULSE 91; RESP 18; TEMP 36.8; O2SAT 99; BMI 26.4
[2024-03-01] MEDS: TET/DIPHTH/PERT-ADULT 0.5ML SYRINGE 0.5 ML IM (15:30)
--- NOTE | 2024-03-01 15:39 | EXP.UTC ---
Discharge Plan Disposition Patient Disposition: Home, Self-Care Condition: Good Prescriptions Prescriptions: No Action folic acid 1 mg tablet 1 mg PO DAILY Mirena 20 mcg/24 hours (7 yrs) 52 mg intrauterine device 1 device INTRAUTERI DIRECTED methotrexate sodium (PF) 25 mg/mL solution 25 mg IM WEEKLY (DME) BD Luer-Terra Syringe 3 mL 25 x 5/8 syringe See Rx Instructions .ROUTE .MEDSUPPLY Qty: 1 Rx Instructions: As directed phentermine 37.5 mg tablet 37.5 mg PO DAILY duloxetine 60 mg capsule,delayed release(DR/EC) 60 mg PO DAILY mupirocin 2 % ointment topical ferrous gluconate 324 mg (38 mg iron) tablet 324 mg PO DAILY loratadine 10 mg tablet 10 mg PO DAILY ondansetron 4 mg tablet,disintegrating See Rx Instructions .ROUTE .COMPLEX Qty: 30 0RF Dose Instruction: DISSOLVE 1 TABLET ON THE TONGUE EVERY 6 HOURS Rx Instructions: DISSOLVE 1 TABLET ON THE TONGUE EVERY 6 HOURS ibuprofen 800 mg Tablet 800 mg PO Q8H PRN (Reason: Mild Pain (Scale Score 1-4)) pantoprazole [Protonix] 40 MG tablet,delayed release (DR/EC) 40 mg PO HS gabapentin [Neurontin] 300 MG capsule 300 mg PO QID Referrals Follow up/Referrals: Honey Stewart MD [Primary Care Provider] - See instructions Activity Restrictions/Add. Instructions Additional Instructions/Restrictions: Suture instructions: ?You have required stitches today. Please read the following instructions so you know how to care for them: ?1. Keep wound area dry for the first 24 hours. 2?? May clean gently with mild soap and water, after 48 hours to prevent crusting over suture knots. 3. You may shower if your provider gives permission but do not take a bath until the skin is healed.. 4. Never leave a wet dressing or Band-Aid on your stitches as this allows bacteria to reach the area and may cause infection. Band-aids can cause the wound to sweat and not recommended to wear for long periods of time Watch for signs of infection: ? Increasing redness, tenderness or warmth around the suture site ? Unusual swelling around the site ? Appearance of pus around each suture or any red streaks ? Fever If you develop any of the above signs or symptoms of infection, Follow up with Family Physician immediately 5. Suture removal in _-___days 6. Return to [facility] or follow up with family doctor for removal. This can be done by any medical provider dur?ing regular hours on Sunday through Sunday, by appointment. Clinical Impressions Clinical Impression: Finger laceration Instructions Patient Instructions: DI for Laceration Repair -- Simple, DI for Laceration Repair-Skin Glue Print Language Print Language: Bolivian Discharge ED Provider: Shasha Villarreal [facility] [place] H[place] General Stated complaint: cut on left ring finger and pinky Mode of Arrival: Ambulatory Source of Information: Patient Limitations: No Limitations Time Seen by Provider: 03/01/24 15:39 Description of Symptoms (Recalled from Triage Doc. by RN): PATIENT C/O LACERATION TO LEFT RING FINGER WHILE CUTTING CORN TODAY HEENT Symptoms (Recalled from RN notes): No Resp Symptoms (Recalled from RN notes): No Skin Symptoms (Recalled from RN notes): Yes MS Symptoms (Recalled from RN notes): No Functional Status (Recalled from RN notes): WNL History of Present Illness Provider Complaint: Patient states that she was cutting up corn earlier and the knife slipped and cut her on her left ring finger and little finger States that she thought she may need stitches so she came in denies numbness, able to move fingers easily Related Data Home Medications ?Medication ?Instructions ?Recorded ?Confirmed gabapentin 300 mg capsule 300 mg PO QID Pain 03/01/21 11/28/23 (Neurontin) pantoprazole 40 mg tablet,delayed 40 mg PO HS GERD 03/01/21 11/28/23 release (Protonix) folic acid 1 mg tablet 1 mg PO DAILY 08/05/21 11/28/23 levonorgestrel (Mirena) 1 device intrauterine DIRECTED 08/05/21 11/28/23 ibuprofen 800 mg tablet 800 mg PO Q8H PRN Mild Pain (Scale 07/18/23 11/28/23 Score 1-4) duloxetine 60 mg capsule,delayed 60 mg PO DAILY 11/28/23 11/28/23 release ferrous gluconate 324 mg (38 mg 324 mg PO DAILY 11/28/23 11/28/23 iron) tablet loratadine 10 mg tablet 10 mg PO DAILY 11/28/23 11/28/23 methotrexate sodium (PF) 25 mg/mL 25 mg IM WEEKLY 11/28/23 11/28/23 injection solution mupirocin 2 % topical ointment topical 11/28/23 11/28/23 phentermine 37.5 mg tablet 37.5 mg PO DAILY 11/28/23 11/28/23 syringe with needle 3 mL 25 x 5/8 #1 ea 11/28/23 11/28/23 (BD Luer-Terra Syringe) Previous Rx's ?Medication ?Instructions ?Recorded ondansetron 4 mg disintegrating See Rx Instructions .Route 01/03/24 tablet .COMPLEX #30 tabs Allergies Allergy/AdvReac Type Severity Reaction Status Date / Time No Known Allergies Allergy Verified 11/28/23 15:16 Worker's Comp Is this a Worker's Comp case?: No [facility] Disclaimer: The information contained in this section may have been updated after the patient was seen, as this information can be updated by other users. Medical History History of hip fracture History of anemia Surgical History History of tonsillectomy Hx of sinus surgery Family History Mother Family history of cancer Father Family history of diabetes mellitus type II Social History Smoking Status: Never smoker alcohol intake: never substance use type: denies use current occupational status: employed Travel in the last 8 weeks: None caffeine: Yes Have you lived/traveled outside [place] in past 30 days?: No Contact w/someone who lives/traveled outside [place] past 30 days?: No Exposure to someone with infectious disease in past 14 days?: No Do you have a fever (greater than 100.4 F or 38 C)?: No Have you tested positive for COVID-19: No Exposed to someone with COVID-19 in past 14 days?: No Do you have a sore throat?: No Do you have a cough?: No Do you have any weakness?: No Do you have any diarrhea?: No Are you experiencing any unusual bleeding?: No Do you have any muscle aches/pain?: No Do you have any abdominal pain?: No Are you experiencing loss of taste or smell?: No ROS Obtained: Yes All systems reviewed & no additional complaints except as documented and Yes Systems reviewed as appropriate & no additional complaints except as documented Constitutional Constitutional: Reports system reviewed and no additional complaints, except as documented and Reports as per HPI ENT Ears, Nose, Mouth, and Throat: Reports system reviewed and no additional complaints, except as documented and Reports as per HPI Cardiovascular Cardiovascular: Reports system reviewed and no additional complaints, except as documented and Reports as per HPI Respiratory Respiratory: Reports system reviewed and no additional complaints, except as documented and Reports as per HPI Gastrointestinal Gastrointestingal: Reports system reviewed and no additional complaints, except as documented and as per HPI Musculoskeletal Musculoskeletal: Reports system reviewed and no additional complaints, except as documented and Reports as per HPI Integumentary/Breasts Skin/Breast: Reports system reviewed and no additional complaints, except as documented and Reports as per HPI Comments: laceration to left ring and little finger Physical Exam General General appearance: alert and in no apparent distress Respiratory Respiratory exam: Present normal lung sounds bilaterally; Absent respiratory distress or wheezes Cardiovascular Cardiovascular exam: Present regular rate, normal rhythm and normal heart sounds Expanded Upper Extremity Exam Left: Hand L/R front image: 1. laceration 2. laceration (superficial laceration noted) Neurological Exam Neurological exam: Present alert, oriented X3 and normal gait Medical Decision Making Medical Records Screening: Per USPSTF and CDC recommendations, given the prevalence of disease in our region, it is our hospital?s policy to screen for HIV and viral Hepatitis for all patients aged 18 and over and those with ongoing risk factors. Yadiel Inquiry Pt receiving controlled substance: No Yadiel was queried for this patient: No Vital Signs: 03/01/24 15:05 Temperature 98.3 F Temperature Source Oral Pulse Rate [Right Brachial] 91 H Respiratory Rate 18 Blood Pressure [Right Arm] 140/90 Blood Pressure Mean [Right Arm] 106 Blood Pressure Source [Right Arm] Automatic Cuff Blood Pressure Position [Right Arm] Sitting 02 Sat by Pulse Oximetry 99 Oxygen Delivery Method Room Air Orders (Tests/Meds): ED MEDICATIONS Generic Name Dose Route Start Last Admin Trade Name Freq PRN Reason Stop Dose Admin Tetanus/Reduced Diphtheria/Acell Pertussis 0.5 ml 03/01/24 15:18 03/01/24 15:30 Tet/Diphth/Pert-Adult 0.5ml Syringe IM 01/04/25 15:19 0.5 ml .ONCE ONE Administration Procedures Laceration Laceration 1: Site: finger Side (If applicable): left Size (cm): 1 Description: linear Depth: simple, single layer Local Anesthetic: lidocaine 1% Amount of anesthesia used (mL): 1 Pre-repair: wound explored and irrigated extensively Skin layer closed with: nylon Size (cm): 5-0 Number of sutures: 4 Technique: simple, interrupted (wound edges approximated well) Laceration 2: Site: finger Side (If applicable): left Size (cm): 1 Description: linear Depth: simple, single layer (superficial) Pre-repair: irrigated extensively Skin layer closed with: Dermabond
[2024-03-01 16:12] VITALS: BP 140/90; PULSE 91; RESP 18; TEMP 36.8; O2SAT 99
== END 2024-03-01 16:13 | disposition home or self-care (01) ==
PROVIDERS: Emergency Provider Nurse Practitioner; PCP Family Medicine
DX: S61.219A Laceration without foreign body of unspecified finger without damage to nail, initial encounter (principal)
CPT/HCPCS: 90471; 90715; 99213; G0381

== ENCOUNTER 2024-06-16 09:34 | Outpatient (CLI) | payer BC, SELFPAY ==
--- NOTE | 2024-06-16 09:36 | US_ITS ---
FINAL REPORT TECHNIQUE: Sonographic images of the abdomen were obtained in all four quadrants. CLINICAL HISTORY: ABD PAIN FINDINGS: LIVER: Homogeneous. There are multiple hepatic cysts. An index lesion in the left lobe measures 6.2 cm. It is septated. The portal vein is patent with normal directional flow. GALLBLADDER: No gallstones. No pericholecystic fluid collection or gallbladder wall thickening. The common duct measures 3 mm. This is within normal limits for age. PANCREAS: Unremarkable. RIGHT KIDNEY: 9.5 cm. No hydronephrosis, mass or stone. LEFT KIDNEY: 8.5 cm. No hydronephrosis, mass or stone. SPLEEN: 8.3 cm. No focal splenic lesion. AORTA/IVC: No abdominal aortic aneurysm. Visualized IVC within normal limits. OTHER: No ascites. IMPRESSION: Multiple hepatic cysts. Reviewed, Interpreted and Dictated by Laurie Lovett MD Transcribed by Linda Castro Authenticated and [facility]
== END 2024-06-16 23:59 | disposition home or self-care (01) ==
LOC: RAD 09:34
PROVIDERS: PCP Family Medicine; Visit Provider Nurse Practitioner
DX: K76.89 Other specified diseases of liver (principal)
CPT/HCPCS: 76700

== ENCOUNTER 2024-07-25 15:33 | Outpatient (CLI) | payer BC, SELFPAY ==
[2024-07-25 16:23] LABS: Basophils % 1.1 % (0.1-2.0); Eosinophils # 0.2 Kmm3 (0.0-0.4); Eosinophils % 5.7 % (0.1-12.0); Hematocrit 39.8 % (37.0-47.0); Hemoglobin 12.9 g/dL (12.2-16.2); Immature Granulocytes # 0.02 10^3uL; Immature Granulocytes % 0.5 %; Lymphocytes # 0.7 K/mm3 (0.7-4.5); Lymphocytes % 18.1 % (10-50); Mean Corpuscular HGB Conc 32.4 g/dL (31.8-35.4); Mean Corpuscular Hemoglobin 25.5 pg (27.0-31.2); Mean Corpuscular Volume 78.8 fl (81-99); Mean Platelet Volume 10.5 fl (7.4-10.4); Monocytes # 0.7 K/mm3 (0.1-1.0); Monocytes % 19.7 % (1.7-9.3); Neutrophils % 54.9 % (37.0-80.0); Nucleated Red Blood Cells # 0 10^3/uL; Nucleated Red Blood Cells % 0 %; Platelet Count 314 K/mm3 (142-424); Red Blood Count 5.05 M/mm3 (4.20-5.40); Red Cell Distribution Width 19.9 % (11.5-17.5); Red Cell Distribution Width-SD 55.3 fL; White Blood Count 3.7 K/mm3 (4.8-10.8)
[2024-07-25 16:41] LABS: Alanine Aminotransferase 18 U/L (12-78); Albumin Level 4.1 g/dl (3.5-5.0); Albumin/Globulin Ratio 2.2 (1.1-1.8); Alkaline Phosphatase 82 U/L (38-126); Anion Gap 11.9 mEq/L (5-15); Aspartate Amino Transferase 20 U/L (14-36); Bilirubin,Total 0.4 mg/dl (0.2-1.3); Blood Urea Nitrogen 10 mg/dl (7-17); Calcium 8.7 mg/dl (8.4-10.2); Carbon Dioxide 26 mmol/L (22.0-30.0); Chloride 108 mmol/L (98-107); Estimated Glomerular Filt Rate 74 ml/min (>60); GFR (African American) 89 ML/MIN (>60); Globulin 1.9 g/dL (1.3-3.2); Glucose 65 mg/dl (74-100); Potassium 3.9 mmoL/L (3.5-5.1); Sodium 142 mmol/L (136-145)
== END 2024-07-25 23:59 | disposition home or self-care (01) ==
LOC: LAB 15:34
PROVIDERS: PCP Family Medicine; Visit Provider Internal Medicine Rheumatology
DX: M31.30 Wegener's granulomatosis without renal involvement (principal); Z79.899 Other long term (current) drug therapy
CPT/HCPCS: 36415; 80053; 85025